=== PATIENT | male | born 1980 | race Caucasian/White ===

== ENCOUNTER 2020-07-20 19:12 | Emergency (ER) | payer BC, OTHER ==
--- NOTE | 2020-07-20 19:33 | EDM.PDOC ---
ED HPI GENERAL MEDICAL PROBLEM - General Chief Complaint: Abdominal Pain Stated Complaint: ABDOMINAL PAIN Time Seen by Provider: 07/20/20 19:20 Source of Information: Reports: Patient History Limitations: Reports: No Limitations - History of Present Illness INITIAL COMMENTS - FREE TEXT/NARRATIVE: The patient was in a job interview about 430 this afternoon when he had sudden onset of pain across his epigastrium. The pain was intense and radiating to his sides. He was sweating and felt that he "did not want to do anything." No shekhar shortness of breath. No syncope or near syncope. As the pain was lessening the patient went home and felt intensely fatigued. The pain gradually abated and at the time of his ER visit there was only very mild pain. Risk factors consist of morbid obesity, cigarette smoking though he says he does not smoke regularly or much, hypertension which she is aware of but thinks it is not high enough to worry about and there is no medication he takes for it. There is also a strong family history of non-insulin dependent diabetes. Patient has hypothyroidism and takes Synthroid for this. He also has gout for which he takes allopurinol. Prior to arrival there was no treatment evaluation or any measure tried in an attempt to moderate symptoms. Epigastric Pain Score (Numeric/FACES): 8 - Related Data Allergies Allergy/AdvReac Type Severity Reaction Status Date / Time Penicillins Allergy Swelling Verified 07/20/20 19:37 Sulfa (Sulfonamide Allergy Nausea and Verified 07/20/20 19:37 Antibiotics) Vomiting Home Meds: Home Meds . [No Known Home Meds] 11/23/13 [History] Past Medical History - Past Health History Medical/Surgical History: Denies Medical/Surgical History Social & Family History - Family History Family Medical History: No Pertinent Family History - Tobacco Use Tobacco Use Status *Q: Current Some Day Tobacco User ED ROS GENERAL - Review of Systems Review Of Systems: Comprehensive ROS is negative, except as noted in HPI. ED EXAM, GI/ABD - Physical Exam Exam: See Below Text/Narrative:: On exam the patient is alert and in no distress. He appears quite overweight. Skin is warm and dry with normal turgor. Head normocephalic atraumatic. EOMI PERRLA. Neck is supple without jugular venous distention, hepatojugular reflux, and there are no carotid bruits. Heart is regular S1-S2 without murmur. Lungs are clear breath sounds are full and equal bilaterally. Abdomen is soft nontender without guarding or rebound. There is no peripheral edema cyanosis or clubbing of the digits. Patient is neurologically intact with fluent speech symmetrical gait and no sensory or motor deficit. #1 Interpretation EKG Date: 07/20/20 Time: 19:32 Rhythm: NSR Rate (Beats/Min): 78 [place]: Normal P-Wave: Present QRS: Normal ST-T: Normal QT: Normal Comparison: NA - No Prior EKG EKG Interpretation Comments: NORMAL TRACING #2 Interpretation EKG Date: 07/20/20 Time: 22:56 Rhythm: NSR Rate (Beats/Min): 64 [place]: Normal P-Wave: Present QRS: Normal ST-T: Normal QT: Normal Comparison: No Change EKG Interpretation Comments: NORMAL TRACING Course - Vital Signs Text/Narrative:: With the patient's obesity, untreated hypertension, and smoking status as well as the presentation itself there is concerned that the symptoms patient experienced represented a potential cardiological problem. CT is negative except for fatty liver. EKG is unremarkable essentially normal tracing. Troponin is quite negative. Discussed fully with the patient. It is recommen ded that he stay for 3-hour repeat set of troponin and EKG. If this turns out okay he can be discharged with close follow-up by cardiology. He has a primary care physician who can readily refer him to cardiology. Last Recorded V/S: Last Vital Signs Temp 36.6 C 07/20/20 19:30 Pulse 78 07/20/20 19:30 Resp 18 07/20/20 19:30 BP 155/89 H 07/20/20 19:30 Pulse Ox 98 07/20/20 19:30 - Orders/Labs/Meds Orders: Active Orders 24 hr Category Date Time Status EKG Documentation Completion [RC] STAT Care 07/20/20 19:28 Active EKG Documentation Completion [RC] STAT Care 07/20/20 22:21 Active Chest 1V Frontal [CR] Stat Exams 07/20/20 19:28 Taken Labs: Laboratory Tests 07/20/20 07/20/20 07/20/20 Range/Units 19:35 19:35 20:17 WBC 10.03 H (4.23-9.07) K/mm3 RBC 4.93 (4.63-6.08) M/mm3 Hgb 15.0 (13.7-17.5) gm/dl Hct 45.6 (40.1-51.0) % MCV 92.5 H (79.0-92.2) fl MCH 30.4 (25.7-32.2) pg MCHC 32.9 (32.2-35.5) g/dl RDW Std Deviation 45.1 H (35.1-43.9) fL Plt Count 229 (163-337) K/mm3 MPV 10.1 (9.4-12.3) fl Neutrophils % (Manual) 63 H (40-60) % Band Neutrophils % 0 (0-10) % Lymphocytes % (Manual) 27 (20-40) % Atypical Lymphs % 0 % Monocytes % (Manual) 3 (2-10) % Eosinophils % (Manual) 6 (0.8-7.0) % Basophils % (Manual) 1 (0.2-1.2) Platelet Estimate Adequate RBC Morph Comment Normal Sodium 142 (136-145) mEq/L Potassium 4.0 (3.5-5.1) mEq/L Chloride 104 (98-107) mEq/L Carbon Dioxide 27 (21-32) mEq/L Anion Gap 15.0 (5-15) BUN 17 (7-18) mg/dL Creatinine 1.2 (0.7-1.3) mg/dL Est Cr Clr Drug Dosing 107.36 mL/min Estimated GFR (MDRD) > 60 (>60) mL/min BUN/Creatinine Ratio 14.2 (14-18) Glucose 108 H (74-106) mg/dL Calcium 9.3 (8.5-10.1) mg/dL Magnesium 2.1 (1.8-2.4) mg/dl Total Bilirubin 0.4 (0.2-1.0) mg/dL AST 39 H (15-37) U/L ALT 121 H (16-63) U/L Alkaline Phosphatase 60 (46-116) U/L Troponin I < 0.017 (0.00-0.056) ng/mL Total Protein 7.6 (6.4-8.2) g/dl Albumin 4.1 (3.4-5.0) g/dl Globulin 3.5 gm/dL Albumin/Globulin Ratio 1.2 (1-2) Amylase 28 (25-115) U/L Lipase 90 (73-393) U/L TSH 3rd Generation 13.020 H (0.358-3.74) uIU/mL Urine Color Light yellow (Yellow) Urine Appearance Clear (Clear) Urine pH 6.5 (5.0-8.0) Ur Specific [place] 1.015 (1.005-1.030) Urine Protein Negative (Negative) Urine Glucose (UA) Negative (Negative) Urine Ketones Negative (Negative) Urine Occult Blood Negative (Negative) Urine Nitrite Negative (Negative) Urine Bilirubin Negative (Negative) Urine Urobilinogen 0.2 (0.2-1.0) Ur Leukocyte Esterase Negative (Negative) 07/20/20 Range/Units 22:33 WBC (4.23-9.07) K/mm3 RBC (4.63-6.08) M/mm3 Hgb (13.7-17.5) gm/dl Hct (40.1-51.0) % MCV (79.0-92.2) fl MCH (25.7-32.2) pg MCHC (32.2-35.5) g/dl RDW Std Deviation (35.1-43.9) fL Plt Count (163-337) K/mm3 MPV (9.4-12.3) fl Neutrophils % (Manual) (40-60) % Band Neutrophils % (0-10) % Lymphocytes % (Manual) (20-40) % Atypical Lymphs % % Monocytes % (Manual) (2-10) % Eosinophils % (Manual) (0.8-7.0) % Basophils % (Manual) (0.2-1.2) Platelet Estimate RBC Morph Comment Sodium (136-145) mEq/L Potassium (3.5-5.1) mEq/L Chloride (98-107) mEq/L Carbon Dioxide (21-32) mEq/L Anion Gap (5-15) BUN (7-18) mg/dL Creatinine (0.7-1.3) mg/dL Est Cr Clr Drug Dosing mL/min Estimated GFR (MDRD) (>60) mL/min BUN/Creatinine Ratio (14-18) Glucose (74-106) mg/dL Calcium (8.5-10.1) mg/dL Magnesium (1.8-2.4) mg/dl Total Bilirubin (0.2-1.0) mg/dL AST (15-37) U/L ALT (16-63) U/L Alkaline Phosphatase (46-116) U/L Troponin I < 0.017 (0.00-0.056) ng/mL Total Protein (6.4-8.2) g/dl Albumin (3.4-5.0) g/dl Globulin gm/dL Albumin/Globulin Ratio (1-2) Amylase (25-115) U/L Lipase (73-393) U/L TSH 3rd Generation (0.358-3.74) uIU/mL Urine Color (Yellow) Urine Appearance (Clear) Urine pH (5.0-8.0) Ur Specific [place] (1.005-1.030) Urine Protein (Negative) Urine Glucose (UA) (Negative) Urine Ketones (Negative) Urine Occult Blood (Negative) Urine Nitrite (Negative) Urine Bilirubin (Negative) Urine Urobilinogen (0.2-1.0) Ur Leukocyte Esterase (Negative) Departure - Departure Time of Disposition: 23:10 Disposition: Home, Self-Care 01 Condition: Good Clinical Impression: Atypical chest pain, At risk for cardiovascular event, Morbid obesity with BMI of 45.0-49.9, adult, TSH elevation HTN (hypertension) Qualifiers: Hypertension type: unspecified Qualified Code(s): I10 - Essential (primary) hypertension - Discharge Information Referrals: Emely Melendez MD [Primary Care Provider] - Forms: ED Department Discharge Additional Instructions: Even though you came in with an abdominal pain complaint the overall picture was much more suspicious for a heart related pain. You have definite risk factors and need to be evaluated by a power press tender ANDREIA. During your stay in the ER tonight your EKGs were essentially normal and your troponin which is a very sensitive indicator of damage to the heart was negative initially and when repeated 3 hours later. It is safe for you to go home. If there is a recurrence of this kind of pain do not hesitate to call 911 and return to the hospital by ambulance. You have high blood pressure which is not being treated. Either your primary or your power press tender can establish you on medications and this needs to happen ANDREIA. Your blood pressure was not high enough in the emergency department for us to start emergency drugs on you. You are being treated for hypothyroidism. Your TSH was a bit elevated suggesting that your levothyroxine dose needs to be increased. Your actual TSH number was 13. Please let your primary physician know about this. It is also suggested that you get a referral by your primary physician to a aviation electrician and make a serious attempt to lose your excessive weight. Consideration may be given to bariatric surgery and your primary can help you with this. Sepsis Event Note (ED) - Focused Exam Vital Signs: Vital Signs Temp Pulse Resp BP Pulse Ox 07/20/20 19:30 36.6 C 78 18 155/89 H 98 - My Orders Last 24 Hours: My Active Orders 07/20/20 19:28 EKG Documentation Completion [RC] STAT Chest 1V Frontal [CR] Stat 07/20/20 22:21 EKG Documentation Completion [RC] STAT - Assessment/Plan Last 24 Hours: My Active Orders 07/20/20 19:28 EKG Documentation Completion [RC] STAT Chest 1V Frontal [CR] Stat 07/20/20 22:21 EKG Documentation Completion [RC] STAT
[2020-07-20 19:36] VITALS: BP 155/89; PULSE 78
--- NOTE | 2020-07-20 20:17 | CT ---
CT abdomen and pelvis Technique: Multiple axial sections were obtained from above the dome of the diaphragm inferiorly to the pubic symphysis. Intravenous contrast and oral contrast was not utilized. Reconstructed coronal and sagittal images were obtained. Comparison: No prior CT abdomen or pelvis exam is available. Findings: Visualized lung bases show nothing acute. Fairly severe fatty infiltration is seen within liver. Liver is also enlarged. Gallbladder contains no calcified gallstones. Spleen appears within normal limits. Adrenal glands show no nodule. Pancreas appears within normal limits. Kidneys show no abnormal calcifications. No discrete cyst or solid finding is appreciated. No ureteral dilatation or ureteral stone is seen. Abdominal aorta shows no aneurysm. No retroperitoneal adenopathy is seen. No mesenteric abnormalities are noted. No pelvic mass or adenopathy is seen. Small fat-containing left inguinal hernia is noted. Appendix is seen which is normal in size. No bowel dilatation or bowel wall thickening is seen. Bone window settings were reviewed which show no acute osseous finding. Slight vacuum phenomena is seen posteriorly within the left sacroiliac joint. Impression: 1. Fatty infiltration within the liver. 2. Other findings as noted above. 3. No acute abnormality is seen on noncontrast CT study of the abdomen and pelvis. Diagnostic code #2
--- NOTE | 2020-07-21 09:06 | CR ---
Chest: Portable view of the chest was obtained. Comparison: No prior chest imaging is available. Heart size and mediastinum are normal. Lungs are clear with no acute parenchymal change. Bony structures are grossly intact. Impression: 1. Nothing acute is seen on portable chest x-ray. Diagnostic code #1
== END 2020-07-20 23:36 | disposition home or self-care (01) ==
LOC: JD.ED 19:12
DX: R07.89 Other chest pain (principal); I10 Essential (primary) hypertension; R94.6 Abnormal results of thyroid function studies; E66.01 Morbid (severe) obesity due to excess calories; R10.13 Epigastric pain; F17.210 Nicotine dependence, cigarettes, uncomplicated; Z68.42 Body mass index [BMI] 45.0-49.9, adult; Z88.0 Allergy status to penicillin; Z88.2 Allergy status to sulfonamides
CPT/HCPCS: 36415; 71045; 71045-26; 74176; 74176-26; 80053; 81003; 82150; 83690; 83735; 84443; 84484; 85007; 85027; 93005; 93010; 99284; 99284-25